=== PATIENT | female | born 1985 | race Caucasian/White ===

== ENCOUNTER 2017-01-01 08:27 | Inpatient (IN) | payer OTHER ==
[2017-01-01] VITALS (16 sets, daily range): BP systolic 96–138; BP diastolic 51–81
[~2017-01-01] VITALS: Ht 172.7 cm; Wt 92.0 kg
[2017-01-01] MEDS ORDERED: LR 1,000 ML IV SCH ×2 (11:32)
[2017-01-01] MEDS ORDERED: LACTATED RINGER'S 1000 ML IV STA (11:32)
[2017-01-01] MEDS ORDERED: PENICILLIN G POTASSIUM IV 5 MU in D5W MINI-BAG PLUS 100 ML IV STA ×2 (11:32→17:00)
[2017-01-01] MEDS ORDERED: OXYTOCIN DRIP 30 UNITS in APPROPRIATE DILUENT 1 EA IV SCH (11:45)
[2017-01-01 14:12] LABS: MEAN CORPUSCULAR HGB CONC 34.5 g/dl (32.0-36.5); MEAN CORPUSCULAR VOLUME 92.8 fl (80.0-96.0); RED CELL DISTRIBUTION WIDTH 13.9 % (11.5-14.5); WHITE BLOOD COUNT 13.7 K/mm3 (4.0-10.0)
[2017-01-01] MEDS ORDERED: PENICILLIN G POTASSIUM IV 2.5 MU in D5W 100 ML IV SCH ×2 (15:45→21:00)
[2017-01-01] MEDS ORDERED: FENTANYL 2MCG/ML ROPIVACAINE 0.2% IN 0.9% NACL 200ML IVBAG As Ordered ONE (17:16)
[2017-01-01] MEDS ORDERED: MOM 30ML SUSPENSION UDC PO PRN (18:30)
[2017-01-01] MEDS ORDERED: METHYLERGONOVINE MALEATE 0.2 MG TAB PO PRN (18:30)
[2017-01-01] MEDS ORDERED: DIBUCAINE 1% OINTMENT 30GM TOP PRN (18:30)
[2017-01-01] MEDS ORDERED: DOCUSATE SODIUM 100 MG CAP PO PRN (18:30)
[2017-01-01] MEDS ORDERED: ONDANSETRON 4MG/2ML VIAL (J2405) IV PRN (18:30)
[2017-01-01] MEDS ORDERED: LIDOCAINE 1% MDV INJ 50 ML VIAL INFIL ONE (18:30)
[2017-01-01] MEDS ORDERED: MEASLES,MUMPS,RUBELLA VACCINE INJ (MMR-II) (90707) SC SCH (18:30)
[2017-01-01] MEDS ORDERED: RHOGAM 300 MCG (1500 IU) INJ (J2790) IM SCH (18:30)
[2017-01-01] MEDS ORDERED: miSOPROStol 200 MCG TAB (S0191) PR ONE (18:30)
[2017-01-01] MEDS ORDERED: PROMETHAZINE 25 MG TAB PO PRN (18:30)
[2017-01-01] MEDS: IBUPROFEN 800 MG TAB PO PRN (19:21)
[2017-01-01] MEDS: ACETAMINOPHEN 500 MG TAB PO PRN (20:26)
[2017-01-02] MEDS: ACETAMINOPHEN 500 MG TAB PO PRN (02:15)
[2017-01-02] MEDS: IBUPROFEN 800 MG TAB PO PRN (04:37)
[2017-01-02 06:05] VITALS: BP 139/73
[2017-01-02 07:35] LABS: MEAN CORPUSCULAR HGB CONC 34.2 g/dl (32.0-36.5); MEAN CORPUSCULAR VOLUME 93.4 fl (80.0-96.0); RED CELL DISTRIBUTION WIDTH 13.8 % (11.5-14.5)
[2017-01-02] MEDS ORDERED: TYLE325C PO (08:41)
[2017-01-02] MEDS ORDERED: MOTR200T44 PO (08:41)
[2017-01-02] MEDS ORDERED: COLA100C5 PO (08:41)
[2017-01-02] MEDS ORDERED: DIBU1OIN TOP (08:41)
[2017-01-02] MEDS ORDERED: PRENATAL VITAMINS CHEWABLE TABLET PO SCH (09:00)
[2017-01-02 17:56] VITALS: BP 105/59
== END 2017-01-02 20:52 | disposition home or self-care (01) | DRG 775 ==
LOC: M LDO 08:27 → M LDI 11:05 → M OBS 01-02 07:02
PROVIDERS: ADMIT Student in an Organized Health Care Education/Training Program; ATTEND Student in an Organized Health Care Education/Training Program
PROC: 10E0XZZ Delivery of Products of Conception, External Approach (ICD-10-PCS; principal; 2017-01-01)
PROC: 0KQM0ZZ Repair Perineum Muscle, Open Approach (ICD-10-PCS; 2017-01-01)
DX: O48.0 Post-term pregnancy (principal); Z37.0 Single live birth; Z3A.40 40 weeks gestation of pregnancy; F41.9 Anxiety disorder, unspecified; O99.344 Other mental disorders complicating childbirth; O99.820 Streptococcus B carrier state complicating pregnancy; K59.00 Constipation, unspecified; O99.62 Diseases of the digestive system complicating childbirth; O70.1 Second degree perineal laceration during delivery